=== PATIENT | male | born 1945 | race Caucasian/White ===

== ENCOUNTER 2022-07-01 11:40 | Outpatient (CLI) | payer MEDICARE ==
--- NOTE | 2022-07-01 14:39 | XRAY Report ---
PROCEDURE: Chest 2 View X-Ray INDICATIONS: SHORTNESS OF BREATH TECHNIQUE: 2 view(s) of the chest. COMPARISON: None. FINDINGS: Surgical changes and devices: None. Lungs and pleura: No pleural effusions or pneumothorax. Lungs are clear. Mediastinum: Mediastinal contours are normal. Heart size is normal. Bones and chest wall: No suspicious bony abnormalities. Soft tissues appear unremarkable. IMPRESSION: No acute cardiopulmonary abnormality. Reviewed by: Geovani Fulton MD on 07/01/2022 2:38 PM PDT Approved by: Geovani Fulton MD on 07/01/2022 2:38 PM PDT Station ID: [id number]
== END 2022-07-01 11:41 | disposition home or self-care (01) ==
LOC: DI 11:40
PROVIDERS: ATTEND Physician Assistant
DX: R06.02 Shortness of breath (principal)